=== PATIENT | male | born 1945 | race Caucasian/White ===

== ENCOUNTER → 2023-05-09 23:59 | Outpatient (BNV) | payer MEDICARE, MEDICAID, SELFPAY | PROVIDERS: Visit Provider Internal Medicine Cardiovascular Disease | DX: I21.02 ST elevation (STEMI) myocardial infarction involving left anterior descending coronary artery (principal) | CPT/HCPCS: 92941; 93458; 99152 ==

== ENCOUNTER 2023-12-03 09:21 | Outpatient (REF) | payer MEDICARE, MEDICAID, SELFPAY ==
--- NOTE | ~2023-12-03 | FL_ITS ---
EXAMINATION: XR FLUOROSCOPY UPPER GI WITH AIR CLINICAL INFORMATION: GERD. Hiatal hernia COMPARISON: None TECHNIQUE: Fluoroscopic air contrast upper GI examination was performed utilizing standard techniques with thin and thick barium and effervescent granules. Numerous spot images were obtained. FINDINGS: Images of the oropharynx and hypopharynx demonstrate normal swallow mechanism with normal epiglottic inversion and soft palate elevation. No tracheal penetration, glottic or subglottic aspiration identified. No nasopharyngeal reflux present. A small pharyngeal pouch is noted. There is ballooning of the hypopharynx with associated posterior indentation on the cervical esophagus at the level of C5. The posterior esophageal mucosa at this level has an irregular appearance, however, this is only seen on one swallowing series. This does not persist on other and swallowing series and appears to represent impression of the trachea on the esophagus at this level. A mass would persist. Dual and single contrast images of the esophagus demonstrate normal caliber, contour, and mucosal pattern. No evidence of stricture, mass, or ulcerations identified. Esophageal peristalsis is mildly disorganized. A small type I hiatal hernia is present. No significant gastroesophageal reflux was seen during the course of the examination and on reflux views. Dual contrast and single contrast images of the stomach demonstrated thickened rugal folds and prominence of the mucosal areae gastricae. Findings suggest gastritis. There is no mass. Suboptimal coating of the superior wall is noted. Contrast freely passed into the gastric antrum and duodenal bulb without delay. Single and air-contrast images of the duodenal bulb demonstrate no abnormality. The duodenal sweep has a normal appearance, course, and mucosal fold appearance. There is no malrotation. The imaged proximal jejunum has a normal fold pattern and caliber. FLUOROSCOPY TIME: 3 minutes 16 seconds Number of Spot Images: 9 Number of Cine: 9 DOSE AREA PRODUCT: 2805 uGy-m2 (microgray-meter squared) FL/FL barium swallow with air IMPRESSION: 1. Small lateral pharyngeal pouch 2. Ballooning of the hypopharynx with associated posterior indentation on the upper cervical esophagus at the level of C5. The posterior esophageal mucosa at this level has an irregular appearance, however, this is only seen on one swallowing series. This transient phenomenon is likely artifact, related to the tracheal impression upon the esophagus. 3. Small type I hiatal hernia. No gastroesophageal reflux is seen during this examination. 4. Findings highly suggestive of gastritis. Suggest correlation with EGD. This procedure was performed by Gomez Baez PA-C, and supervised by Dr. Pretty
== END 2023-12-03 09:22 | disposition home or self-care (01) ==
LOC: HO.XRAY 09:21
PROVIDERS: PCP Pediatrics; Visit Provider Internal Medicine
DX: K21.9 Gastro-esophageal reflux disease without esophagitis (principal); K44.9 Diaphragmatic hernia without obstruction or gangrene
CPT/HCPCS: 74221

== ENCOUNTER → 2023-12-03 09:23 | Outpatient (BNV) | payer MEDICARE, MEDICAID, SELFPAY | PROVIDERS: PCP Pediatrics; Visit Provider Physician Assistant Surgical | DX: K21.9 Gastro-esophageal reflux disease without esophagitis (principal) | CPT/HCPCS: 74246 ==

== ENCOUNTER 2024-09-06 08:42 | Day surgery (SDC) | payer MEDICARE, MEDICAID, SELFPAY ==
[2024-09-01 08:01] VITALS: BMI 26.5
[2024-09-06] MEDS: Tetracaine HCl/PF 0.5% Oph Sol 4 ML DROPS 1 DROP EYE-LEFT (09:01)
[2024-09-06] MEDS: Cyclopentolate 1 % Ophth Sol 2 ML DRPBTL 1 DROP EYE-LEFT ×3 (09:02→09:18)
[2024-09-06] MEDS: Tropicamide 1 % Ophth Sol 3 ML BTL 1 DROP EYE-LEFT ×3 (09:04→09:18)
[2024-09-06] MEDS: Ketorolac Tromethamine 0.5% Op 5 ML DROPS 1 DROP EYE-LEFT ×3 (09:06→09:20)
[2024-09-06] MEDS: Phenylephrine HCL 2.5% Oph SoL 2 ML BOTTLE 1 DROP EYE-LEFT ×3 (09:08→09:22)
[2024-09-06 09:15] VITALS: BP 132/65; PULSE 71; RESP 16; TEMP 36.8; O2SAT 98; BMI 25.9
[2024-09-06 09:17] LABS: Glucose, Whole Blood 137 mg/dL (60-115)
[2024-09-06] MEDS: Lactated Ringers 500 ML 50 ML IV (09:23)
--- NOTE | 2024-09-06 09:39 | HO.ANESPROP2 ---
Documented by User: Mary Vu NP 09/03/24 08:43 HPI - Anesthesia Eval Consult details Narrative: 79yo M for Left Cataract Extraction IOL Insertion No previous cataract on record Medically optimized per [facility] CAD/OK s/p stent 07/2023 [facility] Past Medical History Medical History (Updated 08/31/24 @ 15:27 by Christin Joseph RN) Myocardial infarction TIA (transient ischemic attack) Osteopenia Osteoarthritis Elevated cholesterol HTN (hypertension) Type 2 diabetes mellitus CAD (coronary artery disease) BPH (benign prostatic hyperplasia) Depression Anxiety GERD (gastroesophageal reflux disease) Surgical History Surgical History (Updated 09/06/24 @ 09:07 by Mira Baird RN) H/O colonoscopy History of esophagogastroduodenoscopy (EGD) Hx of cardiac catheterization Hx of excision of mass Social History Social History (Updated 08/31/24 @ 15:18 by Christin Joseph RN) Patient Tobacco Use Status: Former Tobacco user Tobacco use type: Cigarette Years Smoked: 55 Use of substances other than those prescribed or required for medical reasons: No Faith Healthcare Practices: none Advance Directives Information Provided: Yes Meds Allergies Allergy/AdvReac Type Severity Reaction Status Date / Time No Known Allergies Allergy Verified 09/06/24 09:07 Home Medications ?Medication ?Instructions ?Recorded ?Confirmed ?Last Taken ?Type amlodipine 10 mg tablet 10 mg PO DAILY 08/31/24 08/31/24 09/05/24 History aspirin 81 mg tablet,delayed 81 mg PO DAILY 08/31/24 08/31/24 Unknown History release carvedilol 12.5 mg tablet 12.5 mg PO BID 08/31/24 08/31/24 09/05/24 History hydroxyzine HCl 25 mg tablet 25 mg PO QID PRN Anxiety 08/31/24 08/31/24 Unknown History isosorbide mononitrate 30 mg 30 mg PO DAILY 08/31/24 08/31/24 09/05/24 History tablet,extended release 24 hr losartan 100 mg tablet 100 mg PO DAILY 08/31/24 08/31/24 09/05/24 History metformin 750 mg tablet,extended 750 mg PO BID 08/31/24 09/06/24 09/05/24 History release 24 hr pantoprazole 40 mg tablet,delayed 40 mg PO DAILY 08/31/24 08/31/24 Unknown History release rosuvastatin 40 mg tablet 40 mg PO BEDTIME 08/31/24 08/31/24 Unknown History sertraline 25 mg tablet 25 mg PO DAILY 08/31/24 08/31/24 Unknown History Exam Height,Weight and Vital Signs: Height 5 ft 6.14 in Weight 74.9 kg Assessment and Plan Assessment Anesthesia Assessment: Chart Reviewed Documented by User: Nidia Salazar, 09/06/24 09:41 [facility] Past Medical History Medical History (Updated 08/31/24 @ 15:27 by Christin Joseph, TWYLA) Myocardial infarction TIA (transient ischemic attack) Osteopenia Osteoarthritis Elevated cholesterol HTN (hypertension) Type 2 diabetes mellitus CAD (coronary artery disease) BPH (benign prostatic hyperplasia) Depression Anxiety GERD (gastroesophageal reflux disease) Family History Family history of problems with anesthesia: No Surgical History Surgical History (Updated 09/06/24 @ 09:07 by Mira Baird RN) H/O colonoscopy History of esophagogastroduodenoscopy (EGD) Hx of cardiac catheterization Hx of excision of mass History of Problems with Anesthesia: No Social History Social History (Updated 08/31/24 @ 15:18 by Christin Joseph, TWYLA) Patient Tobacco Use Status: Former Tobacco user Tobacco use type: Cigarette Years Smoked: 55 Use of substances other than those prescribed or required for medical reasons: No Faith Healthcare Practices: none Advance Directives Information Provided: Yes Meds Allergies Allergy/AdvReac Type Severity Reaction Status Date / Time No Known Allergies Allergy Verified 09/06/24 09:07 Home Medications ?Medication ?Instructions ?Recorded ?Confirmed ?Last Taken ?Type amlodipine 10 mg tablet 10 mg PO DAILY 08/31/24 08/31/24 09/05/24 History aspirin 81 mg tablet,delayed 81 mg PO DAILY 08/31/24 08/31/24 Unknown History release carvedilol 12.5 mg tablet 12.5 mg PO BID 08/31/24 08/31/24 09/05/24 History hydroxyzine HCl 25 mg tablet 25 mg PO QID PRN Anxiety 08/31/24 08/31/24 Unknown History isosorbide mononitrate 30 mg 30 mg PO DAILY 08/31/24 08/31/24 09/05/24 History tablet,extended release 24 hr losartan 100 mg tablet 100 mg PO DAILY 08/31/24 08/31/24 09/05/24 History metformin 750 mg tablet,extended 750 mg PO BID 08/31/24 09/06/24 09/05/24 History release 24 hr pantoprazole 40 mg tablet,delayed 40 mg PO DAILY 08/31/24 08/31/24 Unknown History release rosuvastatin 40 mg tablet 40 mg PO BEDTIME 08/31/24 08/31/24 Unknown History sertraline 25 mg tablet 25 mg PO DAILY 08/31/24 08/31/24 Unknown History Exam Exam Date and Time: 09/06/24 0940 Height,Weight and Vital Signs: Height 5 ft 6.14 in Weight 74.9 kg Vital Signs Temperature 98.2 F 09/06/24 09:15 Pulse Rate 71 09/06/24 09:15 Respiratory Rate 16 09/06/24 09:15 Blood Pressure 132/65 09/06/24 09:15 Pulse Oximetry 98 09/06/24 09:15 Oxygen Delivery Method Room Air 09/06/24 09:15 Temperature 98.2 F 09/06/24 09:15 Pulse Rate 71 09/06/24 09:15 Respiratory Rate 16 09/06/24 09:15 Blood Pressure 132/65 09/06/24 09:15 Pulse Oximetry 98 09/06/24 09:15 Oxygen Delivery Method Room Air 09/06/24 09:15 Airway Mallampati Class: II TM Dist: >3cm Neck ROM: Full Loose/Missing/Broken Teeth: Yes (multiple missing and broken teeth) Heart: S1S2 Lungs: CTAB Assessment and Plan Assessment Anesthesia Assessment: Anesthesia Plan Discussed and Chart Reviewed Final Anesthetic Review Family History of Problems with Anesthesia: No History of Problems with Anesthesia: No NPO: Yes ASA Class: III Final Preanesthetic Review: No Changes in Pt Med Stat, Meds/Allgs Chart Reviewed, Consent Obtained/Reviewed and Anes Risks/Benef Reviewed Patient Risk: Intermediate Procedure Risk: Low Anesthetic Plan Anesthetic Plan: MAC: and Agree w/ Assess. and Plan Disposition: Standard PACU
--- NOTE | 2024-09-06 09:51 | MHC.SHP ---
Pre-Procedural Eval Section A - 24 Hr Update-Section A only Date of Service: 09/06/24 The patient is an INPATIENT: No Changes since office visit: No Cold of Flu in the past 2 weeks, No New Medical Problems, No Changes in Medication and No Patient answered all questions The patient has been examined within 24 hours of the surgical procedure. The History & Physical has been completed within 30 days and I have reviewed it.: Yes Section B - Complete if H&P > 30 days Chief Complaint: Age-related nuclear cataract, left eye Allergies: Allergies Allergy/AdvReac Type Severity Reaction Status Date / Time No Known Allergies Allergy Verified 09/06/24 09:07 Plan Diagnosis/Plan: Unchanged I have reviewed the history and physical and performed a pertinent physical examination on my patient. No changes have occurred unless specified. Time Spent With Patient Time: Total time managing care of this patient today ____ minutes.
--- NOTE | 2024-09-06 09:51 | HO.PNOPHT ---
Ophthalmology Procedure Procedure Date of Service: 09/06/24 Ophthalmology Viscoelastic: Healon Duet Dual Pack Pro Ophthalmology Lenses: IOL Acrysof MP - MA60AC (23.5) Procedure Notes: PREOPERATIVE DIAGNOSIS: Decreased visual acuity left eye secondary to cataract POSTOPERATIVE DIAGNOSIS: Same PROCEDURE: Left cataract extraction with intraocular lens insertion SURGEON: Jon Vaughn M.D. ANESTHESIA: Topical/MAC ESTIMATED BLOOD LOSS: None COMPLICATIONS: None After obtaining informed consent, the patient was brought to the operation room suite and placed in the supine position. After adequate sedation per anesthesia, topical drops of Tetracaine were given to the left eye. The eye was then prepped and draped in the usual sterile fashion. The operating room microscope was then positioned over the operative eye and a lid speculum placed. A paracentesis was created. Viscoelastic was then instilled into the anterior chamber. A three plane incision was then created temporally, utilizing a 2.85 mm keratome. Capsulotomy forceps were then utilized to create a circular tear capsulotomy. Hydrodissection and hydrodelineation were carried out until adequate mobilization of the nucleus occurred. Phacoemulsification was then utilized to remove the dense central nucleus followed by removal of the cortical material utilizing the automated aspiration irrigation unit. Viscoat elastic was instilled into the posterior capsular bag followed by placement of a posterior chamber intraocular lens without difficulty. The residual Viscoat elastic was then removed utilizing the automated IA machine. The wound was check and found to be watertight. The patient tolerated the procedure well and the lid speculum was removed. Intracameral injection of Vigamox 0.1 mL followed by a subtenon injection of Kenalog-40 0.2 mL were administered. The patient will be seen in the a.m.
[2024-09-06 10:12] VITALS: BP 156/74; PULSE 77; RESP 18; TEMP 36.5; O2SAT 97
== END 2024-09-06 10:24 | disposition home or self-care (01) ==
PROVIDERS: PCP Physician Assistant Medical; Visit Provider Ophthalmology
PROC: (CPT 66985; principal; 2024-09-06 10:30)
DX: H25.12 Age-related nuclear cataract, left eye (principal); H54.7 Unspecified visual loss; I10 Essential (primary) hypertension; I25.10 Atherosclerotic heart disease of native coronary artery without angina pectoris; E78.00 Pure hypercholesterolemia, unspecified; E11.9 Type 2 diabetes mellitus without complications; F41.8 Other specified anxiety disorders; K21.9 Gastro-esophageal reflux disease without esophagitis; Z86.73 Personal history of transient ischemic attack (TIA), and cerebral infarction without residual deficits; Z79.01 Long term (current) use of anticoagulants; Z79.84 Long term (current) use of oral hypoglycemic drugs; Z79.899 Other long term (current) drug therapy; Z98.890 Other specified postprocedural states; Z87.891 Personal history of nicotine dependence
CPT/HCPCS: 66984; 82947; J2250; J3301; V2630

== ENCOUNTER 2024-09-20 07:58 | Day surgery (SDC) | payer MEDICARE, MEDICAID, SELFPAY ==
--- OUTSIDE RECORDS SUMMARY | 2024-08-11 08:53 | XMS_ITS ---
Author Organization [facility] Address [address] [place] [address] Care Team Providers Care Cop Examiner Name Role Phone VERONICA CANTU Primary Care Provider Gayla vailable Neri Aguero Unavailable [phone] Encounters Encounter Location Date Provider Diagnosis [facility] [address] [place] [address] 09/21/2023 Neri Aguero PLAN OF TREATMENT No Information
--- OUTSIDE RECORDS SUMMARY | 2024-08-11 08:54 | XMS_ITS | Data Portability ---
Author Organization [place] - [facility] Address [address] [place] [address] Care Team Providers Care Estate And Trust Tax Principal Name Role Phone SAMSON THERON Primary Care Provider Assessment Encounter Date Assessment Date Assessment LastModified by Organization Details LastModified Time 01/16/2024 01/16/2024 Patient presents for cerumen removal. Cerumen removed bilaterally without difficulty. Follow up as scheduled for repeat procedure. donta Not available 01/16/2024 11:32:38 Plan of Treatment Reminders Order Date Submit Date Provider Last Modified By Organization Details Last Modified Time Details Appointments Establish ed 15 2024 03:15P M YAHIR DA SILVA PA-C Not available Not available Not available Lab None recorded. Referral None recorded. Procedures None recorded. Surgeries None recorded. Imaging None recorded. Medication Orders None recorded. Patient TargetsNo targets recorded. Patient InstructionsNo instructions recorded. Reason for Referral None Reported. Problems Name Problem SNOMED Code Status Onset Date Resolution Date Notes Provider Name and Address Organization Details Recorded Time Impacted cerumen of bilateral ears 66980399143 [id number] Active 2022 Impacted cerumen, bilateral ; Note: Date Diagnosed : 11/06/2022 2:07 PM (H61.23) Not Available [facility] 03:18:25 Problem Notes None recorded. Procedures Surgical History Date Name Laterality Status Provider Name and Address Organization Details Recorded Time Cerumen removal without microscope bilat completed PERLA NAVA PA-C [address],[facility] [address], [place], [address], [place] [facility] 01/16/2024 11:32:32 Imaging Results None recorded. Procedure Notes None recorded. Medical Equipment None Reported. Medications Name Sig Start Date Stop Date Status Note LastModified by Organization Details LastModified Time buspirone 5 mg tablet TAKE 1 TABLET BY MOUTH 3 TIMES A DAY FOR ANXIETY STOP HYDROXYZI NE PLEASE active Not Available Not Available No t Available metformin 500 mg tablet active Medicatio n ID: [id number] Br and Name: metformin Send Method: E-Prescri bed Subs Allowed: subs [facility]: [facility] Not Available Not Available Not Available carvedilol 25 mg tablet TAKE 1 TABLET BY MOUTH TWICE A DAY active Not Available Not Available No t Available carvedilol 12.5 mg tablet TAKE 1 TABLET BY MOUTH TWICE A DAY active Not Available Not Available No t Available metoprolol succinate ER 50 mg tablet,ext ended release 24 hr TAKE 1 TABLET BY MOUTH EVERY DAY active Not Available Not Available No t Available FreeStyle Lancets 28 gauge TEST DAILY FASTING SUGAR FOR TYPE 2 DIABETES. E11.9 active Not Available Not Available No t Available isosorbide mononitrat e ER 30 mg tablet,ext ended release 24 hr TAKE 1 TABLET BY MOUTH EVERY DAY active Not Available Not Available No t Available metoprolol succinate ER 100 mg tablet,ext ended release 24 hr TAKE 1 TABLET BY MOUTH EVERY DAY active Not Available Not Available No t Available cyanocobal khan (vit B-12) 1,000 mcg tablet 1 TABLET BY MOUTH DAILY,X90 DAYS,INST R:WITH FOOD PLEASE. active Not Available Not Available No t Available pantoprazo le 20 mg tablet,del ayed release TAKE 1 TABLET BY MOUTH TWICE A DAY active Not Available Not Available No t Available tamsulosin 0.4 mg capsule TAKE 1 CAPSULE BY MOUTH AT BEDTIME active Not Available Not Available No t Available amlodipine 10 mg tablet TAKE 1 TABLET BY MOUTH EVERY DAY active Not Available Not Available No t Available pantoprazo le 40 mg tablet,del ayed release TAKE 1 TABLET BY MOUTH EVERY DAY FOR 30 DAYS active Not Available Not Available No t Available metoprolol tartrate 50 mg tablet active Medicatio n ID: [id number] Br and Name: metoprolo l tartrate Send Method: E-Prescri bed Subs Allowed: subs OK [facility] ic[facility]: metoprolo l tartrate Not Available Not Available Not Available sertraline 25 mg tablet TAKE 1 TABLET BY MOUTH EVERY DAY active Not Available Not Available No t Available hydroxyzin e HCl 25 mg tablet active Not Available Not Available No t Available losartan 100 mg tablet TAKE 1 TABLET BY MOUTH EVERY DAY active Not Available Not Available No t Available sertraline 50 mg tablet active Not Available Not Available Not Available simethicon e 80 mg chewable tablet CHEW 1 TABLET BY MOUTH 4 TIMES A DAY NEEDED FOR GAS active Not Available Not Available No t Available metformin ER 750 mg tablet,ext ended release 24 hr TAKE 1 TABLET BY MOUTH TWICE A DAY WITH MEALS active Not Available Not Available No t Available rosuvastat in 5 mg tablet active Medicatio n ID: [id number] Br and Name: rosuvasta tin Send Method: E-Prescri bed Subs Allowed: subs OK [facility]ica [facility] icName: rosuvasta tin Not Available Not Available Not Available rosuvastat in 40 mg tablet TAKE 1 CAPBY MOUTH DAILY AT BEDTIME,X 90 DAYS active Not Available Not Available No t Available FreeStyle Lite Strips CHECK DAILY FASTING SUGAR active Not Available Not Available No t Available Brilinta 90 mg tablet TAKE 1 TABLET BY MOUTH TWICE A DAY active Not Available Not Available No t Available Basaglar KwikPen U-100 Insulin 100 unit/mL (3 mL) subcutaneo us INJECT 10 UNITS SUBCUTANE OUS DAILY AT BEDTIME active Not Available Not Available No t Available Vitals Date Recorded Body height Body mass index (BMI) Body weight Provider Name and Address Organization Details Last Updated DateTime 01/16/2024 170.18 cm 25.1 kg/m2 23493.78 g Vega Francis [facility] 01/16/2024 11:20:41 Social History None recorded. Functional Status None recorded. Mental Status None recorded. Family History Nothing Reported. Medical History No medical history recorded. Past Encounters Encounter ID Performer Location Encounter Start Date Encounter Closed Date Diagnosis/Indication Diagnosis SNOMED-CT Code Diagnosis ICD10 Code Diagnosis Note [id number] MAURY RAMSEY MD [facility] [address] [address] 01/16/2024 11:13:06 01/16/2024 11:31:35 Impacted cerumen of bilateral ears [id number] H61.23 Health Concerns Section Related Observation LastModified by Organization Eva cavanaugh LastModified Time None Recorded Concern Status LastModified by Organization Details LastModified Time None Recorded Advance Directives Directive None Recorded Payers Encounter Date Sequence Insurance Name Policy Number Policy Rosas Covered Member ID Rosas Member ID Guarantor Name 01/16/2024 1 [place] B[place]: [employer] Troy Valdez [employer] [id number] Troy [employer]inary 01/16/2024 2 [place] [facility] Troy Valdez Molinary [id number] Troy [employer] Notes Date Note Type Note Provider Name and Address Organization Details Recorded Time 01/16/2024 text/html 78-year-old male presents for cerumen removal. Has been avoiding Q-tip use. No acute issues. MAURY RAMSEY MD [address] [place] [address], [id number], [place] - [facility] 01/17/2024 10:09:33
--- OUTSIDE RECORDS SUMMARY | 2024-08-11 08:54 | XMS_ITS ---
Author Organization [facility] Address [address] [place] [address] Care Team Providers Care Project Hire Name Role Phone VERONICA CANTU Primary Care Provider Gayla roly Laci Neri Unavailable [phone] ALLERGIES No Known Allergies REASON FOR VISIT Patient presents today for a hiatal hernia MEDICATIONS Medication SIG (Take, Route, Frequency, Duration) Notes Start Date End Date Status Losartan Potassium 100 MG 1 tablet Orall y Once a day Active metFORMIN HCl ER 750 MG Oral for 90 Active Vitamin B-12 1000 MCG 1 TABLET BY MOUTH DAILY,X90 DAYS,INSTR:WITH FOOD PLEASE. Oral for 90 Active Metoprolol Succinate ER 100 MG Oral for 90 Active Brilinta 90 MG 1 tablet Orally Twic e a day for 30 day(s) 08/19/2023 Active Carvedilol 25 MG Oral for 90 A ctive Pantoprazole Sodium 40 MG 1 tablet Orall y Once a day for 30 day(s) 08/19/2023 Active SOCIAL HISTORY Tobacco Use: Social History Observation Description Date Details (start date - stop date) Former Smoker NA - NA Sex Assigned At : Social History Observation Description Sex Assigned At Unknown Tobacco Use/Smoking Question Answer Notes Patient is a former smoker How long has it been since you last smoked? 3-6 months Alcohol Screen Question Answer Notes Did you have a drink containing alcohol in the p ast year? No Points 0 Interpretation Negative VITAL SIGNS Temperature 98.0 degrees Fahrenheit 04/21/20 24 Blood pressure systolic 000 mm Hg 04/21/20 24 Blood pressure diastolic 00 mm Hg 024 Height 67 in 04/21/2024 Weight 166 lb 4 oz lbs 04/21/2024 BMI 26.04 kg/m2 04/21/2024 Encounters Encounter Location Date Provider Diagnosis [facility] [address] [place] [address] 04/21/2024 Neri Aguero Gastroesophageal ref lux disease, esophagitis presence not specified K21.9 and Hiatal hernia K44.9 ASSESSMENTS Encounter Date Diagnosis Assessment Notes Treatment Notes Treatment Clinical Notes 04/21/2024 Gastroesophageal reflux disease, esophagitis presence not specified (ICD-10 - K21.9) Continue 40mg Pantoprazole every day 04/21/2024 Hiatal hernia (ICD-1 0 - K44.9) PLAN OF TREATMENT Treatment Notes Assessment Notes Gastroesophageal reflux dise ase, esophagitis presence not specified Continue 40mg Pantoprazole every day Next Appt Details Follow Up: prn, Reason: Progress Notes * Examination Category Sub-Category Detail Notes General Examination GENERAL APPEARANCE: pleasant , well nourished, well developed, in no acute distress HEAD: EYES: sclera non-icteric EARS: NOSE: THROAT: NECK/THYROID: no cervical lymphade nopathy, neck supple HEART: S1, S2 normal CHEST: LUNGS: clear to auscultatio n bilaterally ABDOMEN: normal bowel sounds, no guarding or rigidity, no guarding or rigidity, no masses palpable, soft, nontender, nondistended NEUROLOGIC: alert and oriented SKIN: nonjaundiced, no spi dillon angiomata EXTREMITIES: no edema PERIPHERAL PULSES: BACK: BREASTS: MUSCULOSKELETAL: MALE GENITOURINARY: LYMPH NODES: RECTAL EXAM: FEMALE GENITOURINARY: ORAL CAVITY: mucosa moist
--- OUTSIDE RECORDS SUMMARY | 2024-08-11 08:54 | XMS_ITS | Data Portability ---
Author Organization 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 Plan of Treatment Reminders Order Date Submit Date Provider Last Modified By Organization Details Last Modified Time Details Appointments NEW PATIENT 15 2024 10:15A M Katie Ash PA-C Not available Not available Not available Lab None recorded . Referral None recorded . Procedures None recorded . Surgeries None recorded . Imaging None recorded . Medication Orders None recorded . Patient TargetsNo targets recorded. Patient InstructionsNo instructions recorded. Reason for Referral None Reported. Results Created Date Observation Date Name Description Value Unit Range Abnormal Flag Note LastModifiedBy Organization Detail LastModifiedTime 02/14/20 24 03/14/2022 imagi ng/di agnos tic resul t No observ ation record ed. [email or web address] Not Available 01/16 01:51:28 02/14/20 24 03/14/2022 imagi ng/di agnos tic resul t No observ ation record ed. [email or web address] Not Available 01/16 01:51:32 Result Notes None recorded. Procedures Surgical History Date Name Laterality Status Provider Name and Address Organization Details Recorded Time 4 Shoulder Kenalog 2cc Injection, Bilateral completed Deandra Cedeño PA-C [address], [place], [address], [place] [facility] 06/03/2024 11:56:06 4 Shoulder Kenalog 2cc Injection, Bilateral completed Deandra Cedeño PA-C [address], [place], [address], [facility] 12/16/2023 09:59:56 4 Shoulder Kenalog 2cc Injection, Bilateral completed Deandra Cedeño PA-C [address], [place], [address], [facility] 09/09/2023 13:16:37 Imaging Results Imaging Date Name Status LastModified by Organiz ation Details LastModified Time 03/14/2022 imaging/diag nostic result completed Information not available 02/14/2024 01:51:28 03/14/2022 imaging/diag nostic result completed Information not available 02/14/2024 01:51:32 Procedure Notes None recorded. Medical Equipment None Reported. Allergies No known drug allergies Medications Name Sig Start Date Stop Date Status Note LastModified by Organization Details LastModified Time buspirone 5 mg tablet TAKE 1 TABLET BY MOUTH 3 TIMES A DAY FOR ANXIETY STOP HYDROXYZI NE PLEASE active Not Available Not Available No t Available carvedilol 25 mg tablet TAKE 1 TABLET BY MOUTH TWICE A DAY active Not Available Not Available No t Available metoprolol succinate ER 50 mg tablet,exte nded release 24 hr TAKE 1 TABLET BY MOUTH EVERY DAY active Not Available Not Available No t Available FreeStyle Lancets 28 gauge TEST DAILY FASTING SUGAR FOR TYPE 2 DIABETES. E11.9 active Not Available Not Available No t Available isosorbide mononitrate ER 30 mg tablet,exte nded release 24 hr TAKE 1 TABLET BY MOUTH EVERY DAY active Not Available Not Available No t Available metoprolol succinate ER 100 mg tablet,exte nded release 24 hr TAKE 1 TABLET BY MOUTH EVERY DAY active Not Available Not Available No t Available cyanocobala min (vit B-12) 1,000 mcg tablet 1 TABLET BY MOUTH DAILY,X90 DAYS,INST R:WITH FOOD PLEASE. active Not Available Not Available No t Available pantoprazol e 20 mg tablet,magdy yed release TAKE 1 TABLET BY MOUTH TWICE A DAY active Not Available Not Available No t Available Nexium 20 mg capsule,del ayed release TAKE 1 CAPSULE BY MOUTH 2 TIMES A DAY ON AN EMPTY STOMACH active Not Available Not Available No t Available tamsulosin 0.4 mg capsule TAKE 1 CAPSULE BY MOUTH AT BEDTIME active Not Available Not Available No t Available amlodipine 10 mg tablet TAKE 1 TABLET BY MOUTH EVERY DAY active Not Available Not Available No t Available pantoprazol e 40 mg tablet,magdy yed release TAKE 1 TABLET BY MOUTH EVERY DAY FOR 30 DAYS active Not Available Not Available No t Available pseudoephed rine-guaife nesin ER 80-700 mg tablet,exte nded release DO NOT DRIVE WHILE ON THIS MEDICATIO N 06/19 completed Statu s: 'Disc ontin ued'; Not Available Not Available Not Available sertraline 25 mg tablet TAKE 1 TABLET BY MOUTH EVERY DAY active Not Available Not Available No t Available hydroxyzine HCl 25 mg tablet active Not Available Not Available Not Available losartan 100 mg tablet TAKE 1 TABLET BY MOUTH EVERY DAY active Not Available Not Available No t Available sertraline 50 mg tablet active Not Available Not Available Not Available simethicone 80 mg chewable tablet CHEW 1 TABLET BY MOUTH 4 TIMES A DAY NEEDED FOR GAS active Not Available Not Available No t Available metformin ER 750 mg tablet,exte nded release 24 hr TAKE 1 TABLET BY MOUTH 2 TIMES A DAY WITH MEALS active Not Available Not Available No t Available rosuvastati n 5 mg tablet TAKE 1 TABLET BY MOUTH EVERYDAY AT BEDTIME active Not Available Not Available No t Available rosuvastati n 40 mg tablet TAKE 1 CAPBY MOUTH DAILY AT BEDTIME,X 90 DAYS active Not Available Not Available No t Available Alcohol Prep Pads CLEANSE SKIN PRIOR TO CHECKING SUGAR FOR DIABETES AND INJECTING LANTUS USES 2 PER DAY active Not Available Not Available No t Available FreeStyle Lite Strips CHECK DAILY FASTING SUGAR active Not Available Not Available No t Available Brilinta 90 mg tablet TAKE 1 TABLET BY MOUTH TWICE A DAY active Not Available Not Available No t Available Brilinta Brilinta 90MG Tablet 2022 active Statu s: 'Curr ent'; Not Available Not Available Not Available Basaglar KwikPen U-100 Insulin 100 unit/mL (3 mL) subcutaneou s INJECT 10 UNITS SUBCUTANE OUS DAILY AT BEDTIME active Not Available Not Available No t Available Vitals Date Recorded Body height Body mass index (BMI) Body weight Provider Name and Address Organization Details Last Updated DateTime 09/09/2023 167.64 cm 29.7 kg/m2 01816 g hideliza ronda [facility] 09/09/2023 12:51:14 Date Recorded Body height Provider Name an d Address Organization Details Last Updated DateTime 12/16/2023 167.64 cm ARLEEN DURAN [facility] 12/16/2023 09:35:41 Date Recorded Body height Body mass index (BMI) Body weight Provider Name and Address Organization Details Last Updated DateTime 06/03/2024 167.64 cm 29.7 kg/m2 78613 g marcel schaffer [facility] 06/03/2024 11:08:49 Social History None recorded. Functional Status None recorded. Mental Status None recorded. Family History Nothing Reported. Medical History No medical history recorded. Past Encounters Encounter ID Performer Location Encounter Start Date Encounter Closed Date Diagnosis/Indication Diagnosis SNOMED-CT Code Diagnosis ICD10 Code Diagnosis Note [id number] Deandra Cedeño PA-C [email or web address] [address] [place] [address] 09/09/2023 12:32:58 09/09/2023 16:41:19 Osteoarthritis of joint of left shoulder region 6107549294 88316 M19.012 Partial th ickness rotator cuff tear 775295928 M75.318 [id number] Deandra Cedeño PA-C [email or web address] [address] [place] [address] 12/16/2023 09:25:49 01/08/2024 13:13:42 Osteoarthritis of joint of left shoulder region 5347093305 20070 M19.012 Partial th ickness rotator cuff tear 654831049 M75.113 [id number] Deandra Cedeño PA-C [email or web address] [address] [place] [address] 06/03/2024 10:47:01 06/25/2024 08:42:10 Osteoarthritis of joint of left shoulder region 1615869901 85530 M19.012 Partial th ickness rotator cuff tear 556588063 M75.111 Impingemen t syndrome of left shoulder region 2178141884 27455 M75.42 Impingemen t syndrome of right shoulder region 2040220233 63030 M75.41 Health Concerns Section Related Observation LastModified by Organization Detai ls LastModified Time None Recorded Concern Status LastModified by Organization Details LastModified Time None Recorded Advance Directives Directive None Recorded Payers Encounter Date Sequence Insurance Name Policy Number Policy Rosas Covered Member ID Rosas Member ID Guarantor Name 09/09/2023 1 [place] [employer] Troy Valdez [employer] [id number] Troy J [employer]inary 09/09/2023 2 [place] [facility] Troy Valdez [employer]inary [id number] Troy J Molinary 12/16/2023 1 [place] [facility] Troy Valdez [employer] [id number] Troy J Molinary 12/16/2023 2 [place] Troy J Molinary [id number] Troy J Molinary 06/03/2024 1 [place] [facility] Troy J Molinary [id number] Troy J Molinary 06/03/2024 2 [place] [facility] Troy Valdez [employer] [id number] Troy Valdez [employer] Notes Date Note Type Note Provider Name and Address Organization Details Recorded Time 09/09/2023 text/html *I am seeing the patient today under the supervision of Dr. Warren who was available but who did not see the patient.HPI: Troy presents to the office today for a recheck of his bilateral shoulders. He has responded favorably to cortisone injections in the past. Presently the right shoulder is more painful than that of the left. Symptoms are worse with overhead and reaching and lifting. He would like bilateral shoulder cortisone injections today. He has been experiencing excellent pain relief for 3 months. He had a cardiac stent placed in April and has recovered well from this. Otherwise he is without any new systemic complaints.PMH/PSH/ME DS/ALL/FMH/SOC HX/ROS are reviewed in detail per my medical intake sheet. General Exam: Vital signs are as noted belowMental status: Alert and lucid. 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 No spasticity or clonus noted.EXAMINATION: The patient is well appearing and in no apparent distress. Alert and oriented x3. Gait is antalgic.Left shoulder reveals no obvious deformity upon inspection. No edema, erythema, ecchymosis, or lesions. Good muscle bulk without atrophy. Neurovascularly intact. Generalized tenderness is present surrounding the shoulder including the trapezius muscle. Active range of motion is as follows: Forward flexion 140? ? ?, abduction 140? ? ?, external rotation 80? ? ?, and internal rotation to T10. Palpable crepitus is present on ROM. Positive impingement signs. Negative speed's. Pain is present on supraspinatus and infraspinatus testing. Strength is 4+/5 on supraspinatus and infraspinatus testing, otherwise is 5/5 including subscapularis and periscapular musculature. No evidence of instability of the shoulder. Right shoulder reveals no obvious deformity upon inspection. No edema, erythema, ecchymosis, or lesions. Good muscle bulk without atrophy. Neurovascularly intact. Tenderness is present over the supraspinatus insertion, proximal biceps tendon, and a.c. joint. Active range of motion is as follows: Forward flexion 180? ? ?, abduction 180? ? ?, external rotation 90? ? ?, and internal rotation to T10. Positive impingement signs, crossarm adduction. Negative speed's. Pain is present on supraspinatus and infraspinatus testing. Strength is 4+/5 on supraspinatus and infraspinatus testing, otherwise is 5/5 including subscapularis and periscapular musculature. No evidence of instability of the shoulder.Cervical spine exam reveals no obvious deformity upon inspection. No edema, erythema, ecchymosis, or lesions. No localized tenderness other than over the left trapezius. ROM is full in all planes and pain free. No focal neurologic deficits in the upper extremities. Previous x-rays and MRI have been reviewed. IMPRESSION: Left shoulder end-stage osteoarthritis and impingement. Right shoulder high-grade articular surface partial tear of the supraspinatus.PLAN: The patient was thoroughly counseled today regarding their shoulder condition, its natural history, and the treatment options including physical therapy, medication, a corticosteroid injection, and surgery. The patient is interested in receiving an injection with corticosteroid.Bilate ral shoulders were prepped sterilely and injections were administered utilizing 80mg of Kenalog and 8cc of 0.25% Marcaine, half into the subacromial space and half intra-articularly. The patient tolerated the procedure well. Post-injection precautions were discussed. Presently he has no interest in surgical intervention. He will continue to monitor his pain and repeat injections every 3 months as needed. All of his questions have been answered.[employer] [facility] speech recognition readiness paraprofessional software was used to create portions of this document. An attempt at proofreading has been made to minimize errors. Please call for corrections. Deandra Cedeño PA-C [address], [place], [address], [facility] 09/09/2023 13:17:24 12/16/2023 text/html *I am seeing the patient today under the supervision of Dr. Hall who was available but who did not see the patient.HPI: Troy presents to the office today for a recheck of his bilateral shoulders. Presently the right shoulder is more painful than that of the left. Symptoms are worse with overhead and reaching and lifting. He would like bilateral shoulder cortisone injections today. He has been experiencing excellent pain relief for 3 months. He had a cardiac stent placed in April and has recovered well from this. Otherwise he is without any new systemic complaints.PMH/PSH/ME DS/ALL/FMH/SOC HX/ROS are reviewed in detail per my medical intake sheet. General Exam: Vital signs are as noted belowMental status: Alert and lucid. 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 No spasticity or clonus noted.EXAMINATION: The patient is well appearing and in no apparent distress. Alert and oriented x3. Gait is antalgic.Left shoulder reveals no obvious deformity upon inspection. No edema, erythema, ecchymosis, or lesions. Good muscle bulk without atrophy. Neurovascularly intact. Generalized tenderness is present surrounding the shoulder including the trapezius muscle. Active range of motion is as follows: Forward flexion 140? ? ?, abduction 140? ? ?, external rotation 80? ? ?, and internal rotation to T10. Palpable crepitus is present on ROM. Positive impingement signs. Negative speed's. Pain is present on supraspinatus and infraspinatus testing. Strength is 4+/5 on supraspinatus and infraspinatus testing, otherwise is 5/5 including subscapularis and periscapular musculature. No evidence of instability of the shoulder. Right shoulder reveals no obvious deformity upon inspection. No edema, erythema, ecchymosis, or lesions. Good muscle bulk without atrophy. Neurovascularly intact. Tenderness is present over the supraspinatus insertion, proximal biceps tendon, and a.c. joint. Active range of motion is as follows: Forward flexion 180? ? ?, abduction 180? ? ?, external rotation 90? ? ?, and internal rotation to T10. Positive impingement signs, crossarm adduction. Negative speed's. Pain is present on supraspinatus and infraspinatus testing. Strength is 4+/5 on supraspinatus and infraspinatus testing, otherwise is 5/5 including subscapularis and periscapular musculature. No evidence of instability of the shoulder.Cervical spine exam reveals no obvious deformity upon inspection. No edema, erythema, ecchymosis, or lesions. No localized tenderness other than over the left trapezius. ROM is full in all planes and pain free. No focal neurologic deficits in the upper extremities. Previous x-rays and MRI have been reviewed. IMPRESSION: Left shoulder end-stage osteoarthritis and impingement. Right shoulder high-grade articular surface partial tear of the supraspinatus.PLAN: The patient was thoroughly counseled today regarding their shoulder condition, its natural history, and the treatment options including physical therapy, medication, a corticosteroid injection, and surgery. The patient is interested in receiving an injection with corticosteroid.Bilate ral shoulders were prepped sterilely and injections were administered utilizing 80mg of Kenalog and 8cc of 0.25% Marcaine, half into the subacromial space and half intra-articularly. The patient tolerated the procedure well. Post-injection precautions were discussed. Presently he has no interest in surgical intervention. He will continue to monitor his pain and repeat injections every 3 months as needed. All of his questions have been answered.[employer] speech recognition readiness paraprofessional software was used to create portions of this document. An attempt at proofreading has been made to minimize errors. Please call for corrections. Deandra Cedeño PA-C [address] [place] [address] [address] [facility], [place], [address], [facility] 12/16/2023 17:26:08 06/03/2024 text/html *I am seeing the patient today under the supervision of Dr. Hall who was available but who did not see the patient.HPI: Troy presents to the office today for a recheck of his bilateral shoulders. He was last seen by myself in December. At that time he received cortisone injections for bilateral shoulders. Symptoms are worse with overhead and reaching and lifting. He would like bilateral shoulder cortisone injections today. He has been experiencing excellent pain relief for 3 months.PMH/PSH/MEDS/A LL/FMH/SOC HX/ROS are reviewed in detail per my medical intake sheet. General Exam: Vital signs are as noted belowMental status: Alert and lucid. 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 No spasticity or clonus noted.EXAMINATION: The patient is well appearing and in no apparent distress. Alert and oriented x3. Gait is antalgic.Left shoulder reveals no obvious deformity upon inspection. No edema, erythema, ecchymosis, or lesions. Good muscle bulk without atrophy. Neurovascularly intact. Generalized tenderness is present surrounding the shoulder including the trapezius muscle. Active range of motion is as follows: Forward flexion 140? ? ?, abduction 140? ? ?, external rotation 80? ? ?, and internal rotation to T10. Palpable crepitus is present on ROM. Positive impingement signs. Negative speed's. Pain is present on supraspinatus and infraspinatus testing. Strength is 4+/5 on supraspinatus and infraspinatus testing, otherwise is 5/5 including subscapularis and periscapular musculature. No evidence of instability of the shoulder. Right shoulder reveals no obvious deformity upon inspection. No edema, erythema, ecchymosis, or lesions. Good muscle bulk without atrophy. Neurovascularly intact. Tenderness is present over the supraspinatus insertion, proximal biceps tendon, and a.c. joint. Active range of motion is as follows: Forward flexion 180? ? ?, abduction 180? ? ?, external rotation 90? ? ?, and internal rotation to T10. Positive impingement signs, crossarm adduction. Negative speed's. Pain is present on supraspinatus and infraspinatus testing. Strength is 4+/5 on supraspinatus and infraspinatus testing, otherwise is 5/5 including subscapularis and periscapular musculature. No evidence of instability of the shoulder.Cervical spine exam reveals no obvious deformity upon inspection. No edema, erythema, ecchymosis, or lesions. No localized tenderness other than over the left trapezius. ROM is full in all planes and pain free. No focal neurologic deficits in the upper extremities. Previous x-rays and MRI have been reviewed. IMPRESSION: Left shoulder end-stage osteoarthritis and impingement. Right shoulder high-grade articular surface partial tear of the supraspinatus and impingement.PLAN: The patient was thoroughly counseled today regarding their shoulder condition, its natural history, and the treatment options including physical therapy, medication, a corticosteroid injection, and surgery. The patient is interested in receiving an injection with corticosteroid.Bilate ral shoulders were prepped sterilely and injections were administered utilizing 80mg of Kenalog and 8cc of 0.25% Marcaine, half into the subacromial space and half intra-articularly. The patient tolerated the procedure well. Post-injection precautions were discussed. Presently he has no interest in surgical intervention. He will continue to monitor his pain and repeat injections every 3 months as needed. All of his questions have been answered.[employer] [facility] speech recognition readiness paraprofessional software was used to create portions of this document. An attempt at proofreading has been made to minimize errors. Please call for corrections. Deandra Cedeño PA-C [address] [address], [place], [address], [facility] 06/03/2024 11:58:36
--- OUTSIDE RECORDS SUMMARY | 2024-08-11 08:54 | XMS_ITS | Patient Health Record ---
Author Organization [facility] Address [address] [place] [id number] Care Team Providers Care Analog Ic Design Engineer Name Role Phone VERONICA CANTU Primary Care Provider Gayla vailable Neri Aguero Unavailable [phone] ALLERGIES No Known Allergies RESULTS Component Value Reference Range Notes FL barium swallow with air Reviewed date:04/21/2024 01:12:49 PM Interpretation: Performing Lab: Notes/Report: [address] [address] Fluoroscopy Report Signed Patient: Troy Treviño MR#: [id number] 58 : 1945 Acct:[id number] Age/Sex: 78 / M ADM Date: 12/03/23 Loc: HO.XRAY Attending Dr: Neri Aguero MD Ordering Physician: Neri Aguero Date of Service: 12/03/23 Procedure(s): FL barium swallow with air Accession Number(s): [id number] cc: Cora Dewey MD; Neri Aguero EXAMINATION: XR FLUOROSCOPY UPPER GI WITH AIR CLINICAL INFORMATION: GERD. Hiatal hernia COMPARISON: None TECHNIQUE: Fluoroscopic air contrast upper GI examination was performed utilizing standard techniques with thin and thick barium and effervescent granules. Numerous spot images were obtained. FINDINGS: Images of the oropharynx and hypopharynx demonstrate normal swallow mechanism with normal epiglottic inversion and soft palate elevation. No tracheal penetration, glottic or subglottic aspiration identified. No nasopharyngeal reflux present. A small pharyngeal pouch is noted. There is ballooning of the hypopharynx with associated posterior indentation on the cervical esophagus at the level of C5. The posterior esophageal mucosa at this level has an irregular appearance, however, this is only seen on one swallowing series. This does not persist on other and swallowing series and appears to represent impression of the trachea on the esophagus at this level. A mass would persist. Dual and single contrast images of the esophagus demonstrate normal caliber, contour, and mucosal pattern. No evidence of stricture, mass, or ulcerations identified. Esophageal peristalsis is mildly disorganized. A small type I hiatal hernia is present. No significant gastroesophageal reflux was seen during the course of the examination and on reflux views. Dual contrast and single contrast images of the stomach demonstrated thickened rugal folds and prominence of the mucosal areae gastricae. Findings suggest gastritis. There is no mass. Suboptimal coating of the superior wall is noted. Contrast freely passed into the gastric antrum and duodenal bulb without delay. Single and air-contrast images of the duodenal bulb demonstrate no abnormality. The duodenal sweep has a normal appearance, course, and mucosal fold appearance. There is no malrotation. The imaged proximal jejunum has a normal fold pattern and caliber. FLUOROSCOPY TIME: 3 minutes 16 seconds Number of Spot Images: 9 Number of Cine: 9 DOSE AREA PRODUCT: 2805 uGy-m2 (microgray-meter squared) FL/FL barium swallow with air IMPRESSION: 1. Small lateral pharyngeal pouch 2. Ballooning of the hypopharynx with associated posterior indentation on the upper cervical esophagus at the level of C5. The posterior esophageal mucosa at this level has an irregular appearance, however, this is only seen on one swallowing series. This transient phenomenon is likely artifact, related to the tracheal impression upon the esophagus. 3. Small type I hiatal hernia. No gastroesophageal reflux is seen during this examination. 4. Findings highly suggestive of gastritis. Suggest correlation with EGD. This procedure was performed by Gomez Baez PA-C, and supervised by Dr. Pretty Dictated By: Gomez Baez Signed By: <Electronically signed by Gomez Baez in OV> 12/04/231800 <Electronically signed by Mark Pretty MD in OV> 12/04/231804 DD/ TD/TT: Slackman: REASON FOR REFERRAL No Information MEDICATIONS Medication SIG (Take, Route, Frequency, Duration) Notes Start Date End Date Status Losartan Potassium 100 MG 1 tablet Orall y Once a day Active metFORMIN HCl ER 750 MG Oral for 90 Active Brilinta 90 MG 1 tablet Orally Twic e a day for 30 day(s) 08/19/2023 Active Carvedilol 25 MG Oral for 90 A ctive Vitamin B-12 1000 MCG 1 TABLET BY MOUTH DAILY,X90 DAYS,INSTR:WITH FOOD PLEASE. Oral for 90 Active Pantoprazole Sodium 40 MG 1 tablet Orall y Once a day for 30 day(s) 08/19/2023 Active Metoprolol Succinate ER 100 MG Oral for 90 Active IMMUNIZATIONS Vaccine Route Administration Date Status Comme nts Influenza Unknown 03/10/2019 Administered Influenza Unknown 04/06/2024 Administered SOCIAL HISTORY Tobacco Use: Social History Observation [...] ast year? No Points 0 Interpretation Negative PROBLEMS Problem Type ICD Code Onset Dates Problem Status W/U Status Risk SNOMED Code Notes Problem Encounter for screening for malignant neoplasm of colon (Z12.11) Active confirmed 779426613 Problem History of colon polyps (Z86.010) Active confirmed 865868487 Problem Gastroesophageal reflux disease, esophagitis presence not specified (K21.9) Active confirmed 396705393 Problem Hiatal hernia (K44.9) Active confirmed Hiatal hernia (16922447) Problem Abnormal CT scan, esophagus (R93.3) Active confirmed Imaging of gastrointestinal tract abnormal (296253098) VITAL SIGNS Temperature 98.0 degrees Fahrenheit 04/21/2024 Blood pressure diastolic 00 mm Hg 04/21/2024 Height 67 in 04/21/2024 Blood pressure systolic 000 mm Hg 04/21/2024 Weight 166 lb 4 oz lbs 04/21/2024 BMI 26.04 kg/m2 04/21/2024 Encounters Encounter Location Date Provider Diagnosis [facility] [address] [place] [address] 08/19/2023 Neri Aguero Gastroesophageal ref lux disease, esophagitis presence not specified K21.9 ; Abnormal CT scan, esophagus R93.3 ; History of colon polyps Z86.010 ; Encounter for screening for malignant neoplasm of colon Z12.11 and Hiatal hernia K44.9 [facility] [address] [place] [address] 04/21/2024 Neri Aguero Gastroesophageal ref lux disease, esophagitis presence not specified K21.9 and Hiatal hernia K44.9 [facility] [address] [place] [address] 08/19/2023 Neri Aguero [facility] [address] [place] [address] 09/21/2023 Neri Aguero ASSESSMENTS Encounter Date Diagnosis Assessment Notes Treatment Notes Treatment Clinical Notes 08/19/2023 Gastroesophageal reflux disease, esophagitis presence not specified (ICD-10 - K21.9) I will increase your stomach medicine Pantoprazole from 20mg to 40mg 08/19/[address] scan, esophagus (ICD-10 - R93.3) 04/21/2024 Gastroesophageal reflux disease, esophagitis presence not specified (ICD-10 - K21.9) Continue 40mg Pantoprazole every day 04/21/2024 Hiatal hernia (ICD-1 0 - K44.9) 08/19/2023 History of colon polyps (ICD-10 - Z86.010) 08/19/2023 Encounter for screening for malignant neoplasm of colon (ICD-10 - Z12.11) 08/19/2023 Hiatal hernia (ICD-1 0 - K44.9) 08/19/2023 Other We will schedul e your colonoscopy and upper endoscopy in 2024 PLAN OF TREATMENT Pending Test Test Name Order Date XR BARIUM SWALLOW-ESOPHAGUS 08/19/2023 Future Test Test Name Order Date UPPER GI ENDOSCOPY 12/09/2019 COLONOSCOPY 12/09/2019 Insurance Providers Payer Name Payer Address Payer Phone Subscriber Number Group Number Insured Name Patient Relationship to Insured Coverage Start Date Coverage End Date MEDICARE OF [place] [address] [place] [address] [id number] TROY TREVIÑO Self - patient is the insured MEDICAID OF [facility] [address] [place] [address] [id number] TROY TREVIÑO Self - patient is the insured MEDICAL (GENERAL) HISTORY Medical History History ICD Code Hypertension Denies Lung disease or renal disease NIDDM GERD--EGD with Dr. Stiles --small HH, no esophagitis, no Lima's, gastric biospies neg. Hpylori He reports 3 colonoscopies i [facility]--last one in approx 2009--he reports that at least one of the esxams had a colon polyp CVA in 2000--no residual MT 04/2023 with 1 stent placed-Dr. Rylan lennon Surgical History Surgery Date(Month/Year) Lipoma on his back up scan coordinator surgery Hospitalization History Reason Date(Month/Year)
--- OUTSIDE RECORDS SUMMARY | 2024-08-11 08:55 | XMS_ITS ---
Author Organization [facility] Address [address] [place] [phone] Care Team Providers Care Logistics Administrator Name Role Phone VERONICA CANTU Primary Care Provider Gayla vailable Neri Aguero Unavailable [phone] Encounters Encounter Location Date Provider Diagnosis [facility] [address] [place] [address] 08/19/2023 Neri Aguero PLAN OF TREATMENT No Information
[2024-09-01 08:05] VITALS: BMI 26.5
[2024-09-20 08:33] VITALS: BMI 26.0
[2024-09-20 08:37] VITALS: BP 124/60; PULSE 67; RESP 16; TEMP 36.4; O2SAT 96
[2024-09-20 08:45] LABS: Glucose, Whole Blood 117 mg/dL (60-115)
[2024-09-20] MEDS: Tetracaine HCl/PF 0.5% Oph Sol 4 ML DROPS 1 DROP EYE-RIGHT (08:45)
[2024-09-20] MEDS: Tropicamide 1 % Ophth Sol 3 ML BTL 1 DROP EYE-RIGHT ×3 (08:46→08:52)
[2024-09-20] MEDS: Cyclopentolate 1 % Ophth Sol 2 ML DRPBTL 1 DROP EYE-RIGHT ×3 (08:46→08:51)
[2024-09-20] MEDS: Ketorolac Tromethamine 0.5% Op 5 ML DROPS 1 DROP EYE-RIGHT ×3 (08:47→08:52)
[2024-09-20] MEDS: Phenylephrine HCL 2.5% Oph SoL 2 ML BOTTLE 1 DROP EYE-RIGHT ×3 (08:48→08:53)
--- NOTE | 2024-09-20 08:52 | P.CONAN_ITS ---
Documented by User: Mary Vu NP 09/16/24 14:09 HPI - Anesthesia Eval Consult details Narrative: 79yo M for Right Cataract Extraction IOL Insertion Left eye 09/06/24: Midaz 2 Medically optimized per [facility] CAD/[place] s/p stent 07/2023 [facility] Past Medical History Medical History (Updated 08/31/24 @ 15:27 by Christin Joseph RN) Myocardial infarction TIA (transient ischemic attack) Osteopenia Osteoarthritis Elevated cholesterol HTN (hypertension) Type 2 diabetes mellitus CAD (coronary artery disease) BPH (benign prostatic hyperplasia) Depression Anxiety GERD (gastroesophageal reflux disease) Family History Family history of problems with anesthesia: No Surgical History Surgical History (Updated 09/06/24 @ 09:07 by Mira Baird RN) H/O colonoscopy History of esophagogastroduodenoscopy (EGD) Hx of cardiac catheterization Hx of excision of mass History of Problems with Anesthesia: No Social History Social History (Updated 08/31/24 @ 15:18 by Christin Joseph RN) Patient Tobacco Use Status: Former Tobacco user Tobacco use type: Cigarette Years Smoked: 55 Use of substances other than those prescribed or required for medical reasons: No Confucianism Healthcare Practices: none Are you DNR?: No Advance Directives Information Provided: Yes Nutrition Risks: Surgical patient >75years Poor oral hygiene: No Meds Allergies Allergy/AdvReac Type Severity Reaction Status Date / Time No Known Allergies Allergy Verified 09/06/24 09:07 Home Medications ?Medication ?Instructions ?Recorded ?Confirmed ?Last Taken ?Type amlodipine 10 mg tablet 10 mg PO DAILY 08/31/24 08/31/24 09/20/24 History aspirin 81 mg tablet,delayed 81 mg PO DAILY 08/31/24 08/31/24 09/20/24 History release carvedilol 12.5 mg tablet 12.5 mg PO BID 08/31/24 08/31/24 09/20/24 History hydroxyzine HCl 25 mg tablet 25 mg PO QID PRN Anxiety 08/31/24 08/31/24 Unknown History isosorbide mononitrate 30 mg 30 mg PO DAILY 08/31/24 08/31/24 09/20/24 History tablet,extended release 24 hr losartan 100 mg tablet 100 mg PO DAILY 08/31/24 08/31/24 09/05/24 History metformin 750 mg tablet,extended 750 mg PO BID 08/31/24 09/06/24 09/05/24 History release 24 hr pantoprazole 40 mg tablet,delayed 40 mg PO DAILY 08/31/24 08/31/24 09/20/24 History release rosuvastatin 40 mg tablet 40 mg PO BEDTIME 08/31/24 08/31/24 Unknown History sertraline 25 mg tablet 25 mg PO DAILY 08/31/24 08/31/24 Unknown History Exam Height,Weight and Vital Signs: Height 5 ft 6.14 in Weight 74.9 kg Assessment and Plan Assessment Anesthesia Assessment: Chart Reviewed Final Anesthetic Review Family History of Problems with Anesthesia: No History of Problems with Anesthesia: No Documented by User: Nidia Salazar DO 09/20/24 08:53 [facility] Past Medical History Medical History (Updated 08/31/24 @ 15:27 by Christin Joseph, TWYLA) Myocardial infarction TIA (transient ischemic attack) Osteopenia Osteoarthritis Elevated cholesterol HTN (hypertension) Type 2 diabetes mellitus CAD (coronary artery disease) BPH (benign prostatic hyperplasia) Depression Anxiety GERD (gastroesophageal reflux disease) Family History Family history of problems with anesthesia: No Surgical History Surgical History (Updated 09/06/24 @ 09:07 by Mira Baird RN) H/O colonoscopy History of esophagogastroduodenoscopy (EGD) Hx of cardiac catheterization Hx of excision of mass History of Problems with Anesthesia: No Social History Social History (Updated 08/31/24 @ 15:18 by Christin Joseph, TWYLA) Patient Tobacco Use Status: Former Tobacco user Tobacco use type: Cigarette Years Smoked: 55 Use of substances other than those prescribed or required for medical reasons: No Confucianism Healthcare Practices: none Are you DNR?: No Advance Directives Information Provided: Yes Nutrition Risks: Surgical patient >75years Poor oral hygiene: No Meds Allergies Allergy/AdvReac Type Severity Reaction Status Date / Time No Known Allergies Allergy Verified 09/06/24 09:07 Home Medications ?Medication ?Instructions ?Recorded ?Confirmed ?Last Taken ?Type amlodipine 10 mg tablet 10 mg PO DAILY 08/31/24 08/31/24 09/20/24 History aspirin 81 mg tablet,delayed 81 mg PO DAILY 08/31/24 08/31/24 09/20/24 History release carvedilol 12.5 mg tablet 12.5 mg PO BID 08/31/24 08/31/24 09/20/24 History hydroxyzine HCl 25 mg tablet 25 mg PO QID PRN Anxiety 08/31/24 08/31/24 Unknown History isosorbide mononitrate 30 mg 30 mg PO DAILY 08/31/24 08/31/24 09/20/24 History tablet,extended release 24 hr losartan 100 mg tablet 100 mg PO DAILY 08/31/24 08/31/24 09/05/24 History metformin 750 mg tablet,extended 750 mg PO BID 08/31/24 09/06/24 09/05/24 History release 24 hr pantoprazole 40 mg tablet,delayed 40 mg PO DAILY 08/31/24 08/31/24 09/20/24 History release rosuvastatin 40 mg tablet 40 mg PO BEDTIME 08/31/24 08/31/24 Unknown History sertraline 25 mg tablet 25 mg PO DAILY 08/31/24 08/31/24 Unknown History Exam Exam Date and Time: 09/20/24 0845 Height,Weight and Vital Signs: Height 5 ft 6.14 in Weight 74.9 kg Vital Signs Temperature 97.5 F 09/20/24 08:37 Pulse Rate 67 09/20/24 08:37 Respiratory Rate 16 09/20/24 08:37 Blood Pressure 124/60 09/20/24 08:37 Pulse Oximetry 96 09/20/24 08:37 Oxygen Delivery Method Room Air 09/20/24 08:37 Temperature 97.5 F 09/20/24 08:37 Pulse Rate 67 09/20/24 08:37 Respiratory Rate 16 09/20/24 08:37 Blood Pressure 124/60 09/20/24 08:37 Pulse Oximetry 96 09/20/24 08:37 Oxygen Delivery Method Room Air 09/20/24 08:37 Airway Mallampati Class: II TM Dist: >3cm Neck ROM: Full Loose/Missing/Broken Teeth: Yes (multiple missing and broken teeth) Heart: S1S2 Lungs: CTAB Assessment and Plan Assessment Anesthesia Assessment: Anesthesia Plan Discussed and Chart Reviewed Final Anesthetic Review Family History of Problems with Anesthesia: No History of Problems with Anesthesia: No NPO: Yes ASA Class: III Final Preanesthetic Review: No Changes in Pt Med Stat, Meds/Allgs Chart Reviewed, Consent Obtained/Reviewed and Anes Risks/Benef Reviewed Patient Risk: Intermediate Procedure Risk: Low Anesthetic Plan Anesthetic Plan: MAC: and Agree w/ Assess. and Plan Disposition: Standard PACU
[2024-09-20] MEDS: Lactated Ringers 500 ML 50 ML IV (08:53)
--- NOTE | 2024-09-20 09:29 | P.PCNO_ITS ---
Ophthalmology Procedure Procedure Date of Service: 09/20/24 Ophthalmology Viscoelastic: Healon Duet Dual Pack Pro Ophthalmology Lenses: IOL Acrysof MP - [id number] (21.5) Procedure Notes: PREOPERATIVE DIAGNOSIS: Decreased visual acuity right eye secondary to cataract POSTOPERATIVE DIAGNOSIS: Same PROCEDURE: Right cataract extraction with intraocular lens insertion SURGEON: Jon Vaughn M.D. ANESTHESIA: Topical/MAC ESTIMATED BLOOD LOSS: None COMPLICATIONS: None After obtaining informed consent, the patient was brought to the operating room suite and placed in the supine position. After adequate sedation per anesthesia, topical drops of Tetracaine were given to the right eye. The eye was then prepped and draped in the usual sterile fashion. The operating room microscope was then positioned over the operative eye and a lid speculum placed. A paracentesis was created. Viscoelastic was then instilled into the anterior chamber. A three plane incision was then created temporally, utilizing a 2.85 mm keratome. Capsulotomy forceps were then utilized to create a circular tear capsulotomy. Hydrodissection and hydrodelineation were carried out until adequate mobilization of the nucleus occurred. Phacoemulsification was then utilized to remove the dense central nu cleus followed by removal of the cortical material utilizing the automated aspiration irrigation unit. Viscoelastic was instilled into the posterior capsular bag followed by placement of a posterior chamber intraocular lens without difficulty. The residual Viscoelastic was then removed utilizing the automated IA machine. The wound was checked and found to be watertight. The patient tolerated the procedure well and the lid speculum was removed. Intracameral injection of Vigamox 0.1 mL followed by a subtenon injection of Kenalog-40 0.2 mL were administered. The patient will be seen in the a.m.
--- NOTE | 2024-09-20 09:29 | MHC.SHP ---
Pre-Procedural Eval Section A - 24 Hr Update-Section A only Date of Service: 09/20/24 The patient is an INPATIENT: No Changes since office visit: No Cold of Flu in the past 2 weeks, No New Medical Problems, No Changes in Medication and No Patient answered all questions The patient has been examined within 24 hours of the surgical procedure. The History & Physical has been completed within 30 days and I have reviewed it.: Yes Section B - Complete if H&P > 30 days Chief Complaint: Age-related nuclear cataract, right eye Allergies: Allergies Allergy/AdvReac Type Severity Reaction Status Date / Time No Known Allergies Allergy Verified 09/06/24 09:07 Plan Diagnosis/Plan: Unchanged I have reviewed the history and physical and performed a pertinent physical examination on my patient. No changes have occurred unless specified. Time Spent With Patient Time: Total time managing care of this patient today ____ minutes.
[2024-09-20 10:00] VITALS: BP 132/70; PULSE 79; RESP 16; TEMP 36.3; O2SAT 96
== END 2024-09-20 10:06 | disposition home or self-care (01) ==
PROVIDERS: PCP Physician Assistant Medical; Visit Provider Ophthalmology
PROC: (CPT 66985; principal; 2024-09-20 10:00)
DX: H25.11 Age-related nuclear cataract, right eye (principal); H54.7 Unspecified visual loss; I10 Essential (primary) hypertension; I25.10 Atherosclerotic heart disease of native coronary artery without angina pectoris; Z95.5 Presence of coronary angioplasty implant and graft; I25.2 Old myocardial infarction; E78.00 Pure hypercholesterolemia, unspecified; E11.9 Type 2 diabetes mellitus without complications; K21.9 Gastro-esophageal reflux disease without esophagitis; F32.A Depression, unspecified; Z86.73 Personal history of transient ischemic attack (TIA), and cerebral infarction without residual deficits; Z79.01 Long term (current) use of anticoagulants; Z79.82 Long term (current) use of aspirin; Z79.84 Long term (current) use of oral hypoglycemic drugs; Z79.899 Other long term (current) drug therapy; Z87.891 Personal history of nicotine dependence
CPT/HCPCS: 66984; 82947; J2250; J3301; V2630